=== PATIENT | male | born 1995 | race African-American/Black ===

== ENCOUNTER 2020-09-24 08:57 | Emergency (ER) | payer OTHER ==
[2020-09-24] MEDS ORDERED: BACITRACIN 0.9 GM PACKET ONE (09:28)
[2020-09-24 09:30] VITALS: BP 141/90; PULSE 91; TEMP 98; BMI 21.7
[2020-09-24] MEDS ORDERED: ACETAMINOPHEN 325 MG TABLET (FP) PO ONE (09:38)
[2020-09-24] MEDS ORDERED: ACETAMINOPHEN 325 MG TABLET (FP) ONE (09:42)
[2020-09-24] MEDS ORDERED: IBUPROFEN 600 MG TABLET (FP) PO ONE (11:03)
== END 2020-09-24 11:49 | disposition home or self-care (01) ==
LOC: JER 08:57
DX: M25.511 Pain in right shoulder (principal); M25.561 Pain in right knee; M25.531 Pain in right wrist
CPT/HCPCS: 73030-TC-RT-FY; 73110-TC-LT-FY; 73130-TC-LT-FY; 73552-TC-RT-FY; 73564-TC-RT-FY; 99285-25

== ENCOUNTER 2020-10-26 04:27 | Day surgery (SDC) | payer OTHER ==
[2020-10-25 10:51] VITALS: BMI 28.3
[2020-10-26] MEDS ORDERED: PROPOFOL 20 ML ONE ×2 (07:21→08:42)
[2020-10-26] MEDS ORDERED: DEXAMETHASONE SOD PHOSPHATE 4 MG/1 ML VIAL ONE (07:21)
[2020-10-26] MEDS ORDERED: LIDOCAINE HCL/PF 2% SDV 5ML VIAL ONE (07:21)
[2020-10-26] MEDS ORDERED: ROPIVACAINE HCL 0.5% 30ML VIAL ONE (07:24)
[2020-10-26] MEDS ORDERED: DEXAMETHASONE SOD PHOSPHATE/PF 10 MG/ML SDV ONE (07:24)
[2020-10-26] MEDS ORDERED: MIDAZOLAM HCL 2 MG/2 ML SINGLE DOSE VIAL ONE ×3 (07:25→08:13)
[2020-10-26] MEDS ORDERED: ceFAZolin SODIUM 1 GM VIAL IVPB ONE (08:13)
[2020-10-26] MEDS ORDERED: ceFAZolin SODIUM 1 GM VIAL ONE (08:15)
[2020-10-26] MEDS ORDERED: oxyCODONE HCL 5 MG TABLET PO PRN (09:11)
[2020-10-26] MEDS ORDERED: ONDANSETRON 4 MG/2 ML VIAL IVPUSH PRN (09:11)
[2020-10-26] MEDS ORDERED: LACTATED RINGERS SOLUTION 1,000 ML IV SCH (09:15)
[2020-10-26 10:42] VITALS: TEMP 97.1
[2020-10-26 12:09] VITALS: BP 132/82; PULSE 88
== END 2020-10-26 12:24 | disposition home or self-care (01) ==
LOC: JASU-SURG 04:27
PROVIDERS: ATTEND Orthopaedic Surgery
PROC: 0RQJ4ZZ Repair Right Shoulder Joint, Percutaneous Endoscopic Approach (ICD-10-PCS; principal; 2020-10-26 08:00)
DX: S43.431A Superior glenoid labrum lesion of right shoulder, initial encounter (principal); X58.XXXA Exposure to other specified factors, initial encounter; Y93.9 Activity, unspecified; Y92.89 Other specified places as the place of occurrence of the external cause; Y99.9 Unspecified external cause status
CPT/HCPCS: 94760